=== PATIENT | female | born 1980 | race Caucasian/White ===

== ENCOUNTER 2017-05-21 20:17 | Inpatient (IN) ==
[2017-05-21] MEDS ORDERED: ALUM/MAG/SIMETH/LIDO VISC 1:1 30 ML BOTTLE PO STA (21:35)
[2017-05-21] MEDS ORDERED: NITROGLYCERIN 2% OINT 1 INCH/GM PACK TOP STA (21:35)
[2017-05-21] MEDS ORDERED: SODIUM CHLORIDE 0.9% 500 ML IV STA (21:35)
[2017-05-21] MEDS ORDERED: ASPIRIN 325 MG TABLET PO STA (21:35)
[2017-05-21] MEDS ORDERED: MORPHINE 2 MG/1 ML SYRINGE IV STA (21:35)
[2017-05-21] MEDS ORDERED: LORazepam 1 MG TABLET PO STA (21:35)
[2017-05-21] MEDS ORDERED: PROMETHAZINE 25 MG/1 ML VIAL IM STA (21:35)
[2017-05-21] MEDS ORDERED: NITROGLYCERIN 2% OINT 1 INCH/GM PACK TOP ONE (22:22)
[2017-05-21] MEDS ORDERED: MORPHINE 2 MG/1 ML SYRINGE ONE (22:22)
[2017-05-21] MEDS ORDERED: PROMETHAZINE 25 MG/1 ML VIAL ONE (22:22)
[2017-05-21] MEDS ORDERED: LORazepam 1 MG TABLET ONE (22:22)
[2017-05-21] MEDS ORDERED: ALUM/MAG/SIMETH/LIDO VISC 1:1 30 ML BOTTLE PO ONE (22:23)
[2017-05-21] MEDS ORDERED: ASPIRIN 325 MG TABLET ONE (22:23)
[2017-05-21 22:30] LABS: Apearance,Urine CLOUDY (Clear); Bacteria,Urine Moderate /HPF (Few); Bilirubin,Urine Negative (Negative); Blood, Urine Small mg/dL (Negative); Glucose,Urine (UA) Negative (Negative); Ketones,Urine Negative (Negative); Mucus,Urine Occasional /LPF (Occasional); Nitrite,Urine Negative (Negative); Protein,Urine Negative; RBC,Urine 1 /HPF (0-4); Squamous Epithelial Cell,Urine Occasional /HPF (0-10); Urine Color Yellow (Yellow); Urine Specific Gravity 1.013 (1.001-1.035); Urine Urobilinogen < 2.0 EU/DL (0.2-1.0); WBC,Urine 5 /HPF (0-6)
[2017-05-21 22:45] LABS: Basophils # 0.1 10*3/uL (0.0-0.2); Basophils % 0.4 % (0.0-0.8); Eosinophils # 0.1 10*3/uL (0.0-0.87); Eosinophils % 0.7 % (0.00-10.9); Hematocrit 45.1 VOL% (35.7-47.0); Hemoglobin 15.2 GM/DL (12.0-16.0); Immature Granulocytes % 0.5 %; Immature Granulocytes Absolute 0.06 #; Lymphocytes # 3.2 10*3/uL (1.4-4.0); Lymphocytes % 25.7 % (21.3-54.2); Mean Corpuscular HGB Conc 33.7 GM/DL (32-36); Mean Corpuscular Hemoglobin 30 PG (27-34); Mean Corpuscular Volume 89.3 FL (87-102); Mean Platelet Volume 9.5 FL (9.6-12.0); Monocytes # 0.7 10*3/uL (0.11-0.8); Monocytes % 5.9 % (1.7-12.7); Neutrophils # 8.3 10*3/uL (1.4-7.4); Neutrophils % 66.8 % (38.7-73.9); Platelet Count 353 T/CUMM (130-400); Red Blood Count 5.05 MC/CUMM (3.8-5.5); Red Cell Distribution Width 12.8 % (9.3-17.3); White Blood Count 12.5 T/CUMM (4-12)
[2017-05-21 22:53] LABS: Barbiturates Screen,Urine Negative (Negative); Benzodiazepines Screen,Urine Positive (Negative); Cannabinoid Screen,Urine Negative (Negative); Opiate Screen,Urine Positive (Negative); Phencyclidine Screen,Urine Negative (Negative)
[2017-05-21 23:05] LABS: Albumin 4.4 G/DL (3.4-5.0); Bilirubin,Total 0.4 MG/DL (0.2-1.0); Calcium 10.6 MG/DL (8.5-10.1); Potassium 4.2 MMOL/L (3.5-5.1); Total Protein 7.6 G/DL (6.4-8.3)
--- NOTE | 2017-05-21 23:23 | Emergency Department Note ---
Jenni Gottlieb Brittany, am scribing for, and in the presence of, Hesham Lopez MD 22:12. Jessica Gottlieb Charles R, MD, personally performed the services described in this documentation, ascribed by Janna Arteaga in my presence, and it is both accurate and complete 323 . Arrival - Arrival Chief Complaint: Chest Pain Stated Complaint: chest pain/hurting on right side/back and chest/ ED Nursing Triage Note: Patient complains of midsternal chest pain and right sided chest pain under breast. States that she has also been having nausea nad vomiting. No active vomiting noted upon triage. Patient states that she has a history of mitral valve prolapse, HTN and anxiety. Mode of Arrival: Ambulatory Limitations: No Limitations Source: Patient Time Seen by Provider: 05/21/17 21:13 - History of Present Illness HPI Narrative: This is a 36 y/o white female,who presents to the ED with c/o CP which started 3 days ago. She localizes the chest pian to the right lower quadrant of the chest, upon the exam the pain is actually in the RUQ of the abdomen and epipgastric area of the abdomen. She reports the chest pain moves into her back. She notes nausea and vomiting with the chest pain. She states at times the chest pain causes her to be SOB. Pt reports having an appendectomy but has not had a cholecystectomy. Pt has no other complaints/pain in the ED at this time. Pt has a PMHx of anxiety, HTN, and mitral valve prolapse. Pt has had an appendectomy. Pt has a family medical Hx of Heart disease. Pt denies a social Hx. Onset (ago): day(s) (Staretd 3 days ago) Consistency: constant Severity: moderate Date of Last Menstrual Period: hysterectomy Allergies/Adverse Reactions: Allergies Allergy/AdvReac Type Severity Reaction Status Date / Time metoclopramide [From Reglan] Allergy Hallucinati Verified 05/21/17 20:24 ng ondansetron Allergy HIVES Verified 05/21/17 20:25 [From Zofran (as hydrochloride)] Penicillins Allergy RASH Verified 05/21/17 20:24 Shellfish Allergy ANAPHYLAXIS Verified 05/21/17 20:24 Home Medications: Home Medications Medication Instructions Recorded Confirmed Type ALPRAZolam [Xanax] 1 mg PO TID 05/21/17 05/21/17 History cloNIDine TAB [Catapres Tab] 0.2 mg PO TID 05/21/17 05/21/17 History Review of System - Review of System 12 point system: reviewed and no additional remarkable complaints except as stated - Review of System Cardiovascular: Present: chest pain, other (Dyspnea). Absent: dyspnea on exertion Gastrointestinal: Present: nausea, vomiting Medical,Surgical,& Family Hx - Medical History Cardio: History of: Hypertension, Cardiovascular Problems (mitral valve prolapse ) Psychological: History of: Anxiety Disorders - Surgical History Abdominal Surgeries: Surgical HX of: Appendectomy Patient denies: Cholecystectomy - Family History Family History: Reports;: Family Heart Disease - Social History Smoking Status: Current some day smoker Frequency of Alcohol Use: None Type of Drug Use: None Exam Vital Signs: Vital Signs Temperature 97.4 F L 05/21/17 20:26 Pulse Rate 97 H 05/21/17 20:26 Respiratory Rate 18 05/21/17 20:26 Blood Pressure 107/88 05/21/17 20:26 O2 Sat by Pulse Oximetry 98 05/21/17 20:26 - General General appearance: alert, in no apparent distress - Head Head exam: Present: atraumatic, normocephalic, normal inspection - Eye Eye exam: Present: normal appearance, PERRL, EOMI. Absent: nystagmus, miosis, mydriasis - ENT ENT exam: Present: normal exam, normal oropharynx, mucous membranes moist, TM's normal bilaterally, normal external ear exam - Neck Neck exam: Present: normal inspection, full ROM, trachea midline. Absent: tenderness, meningismus, lymphadenopathy, thyromegaly - Chest Chest inspection: Present: symmetric chest wall rise, tenderness (Sternal tenderness). Absent: rash, abscess - Respiratory Respiratory exam: Present: normal lung sounds bilaterally. Absent: rales, respiratory distress, rhonchi, stridor, wheezes - Cardiovascular Cardiovascular exam: Present: regular rate, normal rhythm, normal heart sounds. Absent: murmur, rubs, gallop, clicks - Abdominal Exam Abdominal exam: Present: soft, tenderness (RUQ tendneress as well as epigastric tendneress), normal bowel sounds. Absent: distention, guarding, rebound, rigidity - Rectal Exam Rectal exam: Present: deferred - Extremities Exam Extremities exam: Present: normal inspection, full ROM, normal capillary refill. Absent: tenderness, pedal edema, joint swelling, calf tenderness - Back Exam Back exam: Present: normal inspection, full ROM. Absent: tenderness, muscle spasm, rashes - Neurological Exam Neurological exam: Present: alert, oriented X3, CN II-XII intact, reflexes normal. Absent: motor sensory deficit - Psychiatric Psychiatric exam: Present: normal affect, normal mood. Absent: depressed, agitated, anxious, flat affect, manic - Skin Skin exam: Present: warm, dry, intact, normal color. Absent: rash, cyanosis, diaphoresis, erythema, pallor, mottled Course - Consultations Consultation #1: Hospitalist will admit patient. Patient is a HIDA scan in the morning she still has right upper quadrant pain Time: 23:56 Results - Labs CBC & BMP: 05/21/17 22:26 05/21/17 22:26 Lab Results: I have reviewed the patients labs Labs: Laboratory Tests 05/21/17 22:26 WBC 12.5 H RBC 5.05 Hgb 15.2 Hct 45.1 MCV 89.3 MCH 30 MCHC 33.7 RDW 12.8 Plt Count 353 MPV 9.5 L Neut % (Auto) 66.8 Lymph % (Auto) 25.7 [place] % (Auto) 5.9 Eos % (Auto) 0.7 Baso % (Auto) 0.4 Neut # (Auto) 8.3 H Lymph # (Auto) 3.2 [place] # (Auto) 0.7 Eos # (Auto) 0.1 Baso # (Auto) 0.1 Immature Gran % 0.5 Nucleated RBC % 0.0 Immature Gran # 0.06 Nucleated RBCs # 0.00 Disposition Clinical Impression: Atypical chest pain, Biliary colic, Right upper quadrant abdominal pain Case discussed with: patient, patient's family Disposition: Still a Patient Condition: Stable Time of Disposition: 23:58
[2017-05-21] MEDS ORDERED: HYDROmorphone 2 MG/1 ML VIAL ONE (23:53)
[2017-05-21] MEDS ORDERED: HYDROmorphone 2 MG/1 ML VIAL IV STA (23:54)
[2017-05-22] MEDS ORDERED: ACETAMINOPHEN 325 MG TABLET PO PRN (00:52)
[2017-05-22] MEDS ORDERED: MORPHINE 2 MG/1 ML SYRINGE IV PRN (00:52)
--- NOTE | 2017-05-22 01:06 | Hospitalist History & Physical ---
Assessment and Plan - Time spent with patient Time spent with patient: Greater than 30 minutes Time spent discussing smoking cessation with patient: 3 to 10 minutes (1) Right upper quadrant abdominal pain Status: Acute Assessment and plan: Admit to the hospitalist service as observation from the ED. preliminary report of the gallbladder ultrasound is negative will obtain HIDA scan in a.m. depending on results consult surgery. Hydrate with normal saline at 125 mL's hour. Pain control Current Visit: Yes (2) Tobacco dependence Status: Acute Assessment and plan: Smoking cessation provided. Patient offered nicotine patch patient refused. Discussed importance of smoking cessation, patient expresses understanding. Current Visit: Yes (3) Hyperlipemia Status: Acute Assessment and plan: Patient reports she discontinued use of her medication due to muscle cramps and fatigue. Encourage patient to take co-Q 10 and restart the medication if this does not help follow-up with her PCP for possible change in medication. Current Visit: Yes (4) Anxiety Status: Acute Assessment and plan: Resume home medications as ordered. Current Visit: Yes History of Present Illness Chief complaint: Right upper quadrant pain History of present illness: Ms. Pitt is a 36 year old female with a past medical history of hypertension, everyday smoker, hyperlipidemia, and anxiety presents to the ED tonight with chief complaint of right upper quadrant pain radiating into her back. She indicates the pain started approximately 3 weeks ago but has progressively gotten worse. She denies diarrhea but does report nausea and vomiting. She reports that when she eats the pain gets worse if she eats foods such as [place]ic fries the pain gets even more intense. She does report her father and grandfather both had gallstones requiring a cholecystectomy. Initial workup in ED included a WBC of 12.5, d-dimer less than 0.5, a benign chemistry with the exception of calcium 10.6, UA with small amount of blood and moderate bacteria. A gallbladder ultrasound was performed ED with a pulmonary report of negative for gallstones. Abdominal x-ray series is pending. She will be admitted to the MedSurg unit overnight for further evaluation. Home Medications Medication Instructions Recorded Confirmed Type ALPRAZolam [Xanax] 1 mg PO TID 05/21/17 05/21/17 History cloNIDine TAB [Catapres Tab] 0.2 mg PO TID 05/21/17 05/21/17 History Allergies Allergy/AdvReac Type Severity Reaction Status Date / Time metoclopramide [From Reglan] Allergy Hallucinati Verified 05/21/17 20:24 ng ondansetron Allergy HIVES Verified 05/21/17 20:25 [From Zofran (as hydrochloride)] Penicillins Allergy RASH Verified 05/21/17 20:24 Shellfish Allergy ANAPHYLAXIS Verified 05/21/17 20:24 Medical,Surgical,& Family Hx - Medical History Cardio: History of: Hypertension, Cardiovascular Problems (mitral valve prolapse ) Psychological: History of: Anxiety Disorders - Surgical History Abdominal Surgeries: Surgical HX of: Appendectomy Patient denies: Cholecystectomy - Family History Family History: Reports;: Family Heart Disease - Social History Smoking Status: Current some day smoker Frequency of Alcohol Use: None Type of Drug Use: None Marital Status: Functional capacity: independent ambulation - Constitutional Constitutional: Absent: fever(s), night sweats, weakness, weight loss - Gastrointestinal Gastrointestinal: Present: abdominal pain, nausea, vomiting Exam - Constitutional Vitals: Period Temp Pulse Resp BP Sys/Cooley Pulse Ox Last 24 Hr 97.4 F-97.4 F 97-97 18-18 107-107/88-88 98 General appearance: normal weight, no acute distress - Head Head exam: Present: normal inspection - Eye Pupils: Present: CARRI - ENT ENT exam: Present: normal exam - Neck Neck exam: Present: normal inspection - Respiratory Respiratory exam: Present: clear to auscultation bilaterally - Cardiovascular Cardiovascular exam: Present: regular rate and rhythm - GI/Abdominal GI/Abdominal exam: Present: normal bowel sounds, Ibarra's sign, tenderness - Extremities Exam Extremities exam: Present: normal inspection - Back Exam Back exam: Present: normal inspection - Neurological Exam Neurological exam: Present: alert, oriented X3, normal gait - Psychiatric Psychiatric exam: Present: normal affect, normal mood - Skin Skin exam: Present: normal color, warm Results - Labs CBC & BMP: 05/21/17 22:26 05/21/17 22:26 Lab Results: I have reviewed the past 24 hour labs - Diagnostic Findings Procedure: Abdominal x-ray: pending, Chest x-ray: pending, Ultrasound: pending Quality Measures - VTE Contraindication to Pharmacological VTE Prophylaxis: Clinical assessment deems Pt at low risk, no prophalaxis needed
[2017-05-22] MEDS: SODIUM CHLORIDE 0.9% 1,000 ML IV SCH ×3 (01:37→21:24)
[2017-05-22] MEDS: PROMETHAZINE 25 MG/1 ML VIAL IM PRN ×3 (04:00→21:15)
--- NOTE | 2017-05-22 04:23 | EKG Report ---
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
--- NOTE | 2017-05-22 07:38 | Ultrasound Report ---
Gallbladder ultrasound. Indication: Right upper quadrant pain. No prior studies. The liver is normal in size. There is prominent fatty infiltration of the liver. The gallbladder is contracted. However the patient was not n.p.o. No gallstones are seen. There is no fluid around the gallbladder tenderness over the gallbladder, or gallbladder wall thickening. The common duct measures 4 mm. The right kidney has a normal appearance. No free fluid is seen in the upper abdomen. The tail of the pancreas is obscured by bowel gas. Visualized portions appear normal. Impression: Fatty infiltration of the liver. Contracted gallbladder, the patient was not n.p.o. which could account for this. PROCEDURE INTERPRETED AT [facility] DEPARTMENT OF RADIOLOGY Final Report Signed by: Dr. Gabriela Cm
--- NOTE | 2017-05-22 08:04 | XRay Report ---
2 view chest. Indication: Chest pain. The heart and mediastinal contours are unremarkable. The pulmonary vasculature is normal. There is no consolidation, pneumothorax, or pleural effusion. The osseous structures are unremarkable. Impression: No abnormality is seen. PROCEDURE INTERPRETED AT [facility] DEPARTMENT OF RADIOLOGY Final Report Signed by: Dr. Gabriela Cm
--- NOTE | 2017-05-22 08:09 | XRay Report ---
2 view abdomen. Indication: Right upper quadrant abdominal pain. The heart is normal in size. The lung bases are clear. No free air identified. No intra-abdominal organomegaly. There is considerable fecal material within the colon. There are a few scattered air-fluid levels predominantly in small intestine. No abnormal calcifications. Normal osseous structures. Impression: Constipation. Scattered small intestinal air-fluid levels, ileus versus enteritis. PROCEDURE INTERPRETED AT [facility] DEPARTMENT OF RADIOLOGY Final Report Signed by: Dr. Gabriela Cm
--- NOTE | 2017-05-22 10:33 | General Surgery Consult Note ---
Assessment and Plan (1) Abdominal pain Status: Acute Assessment and plan: This patient has abdominal pain in the right upper quadrant. Her gallbladder ultrasound was negative and her LFTs are normal. HIDA scan has been ordered. I will follow-up on the results of this. No surgical intervention is planned based on the current information we have available. Current Visit: Yes History of Present Illness Chief complaint: Abdominal pain with nausea History of present illness: Ms. Pitt is a 36 year old female who reports a 2 week history of worsening right upper quadrant pain that became unbearable yesterday and she presented to the ER. It is associated with nausea and vomiting. The patient states that it is worse after eating. Her workup in the ER included normal LFTs with a mild leukocytosis of 12,500 and an ultrasound was essentially normal. Home Medications Medication Instructions Recorded Confirmed Type ALPRAZolam [Xanax] 1 mg PO TID 05/21/17 05/22/17 History cloNIDine TAB [Catapres Tab] 0.2 mg PO BID 05/21/17 05/22/17 History Allergies Allergy/AdvReac Type Severity Reaction Status Date / Time metoclopramide [From Reglan] Allergy Hallucinati Verified 05/21/17 20:24 ng ondansetron Allergy HIVES Verified 05/21/17 20:25 [From Zofran (as hydrochloride)] Penicillins Allergy RASH Verified 05/21/17 20:24 Shellfish Allergy ANAPHYLAXIS Verified 05/21/17 20:24 Medical,Surgical,& Family Hx - Medical History Cardio: History of: Hypertension, Cardiovascular Problems (mitral valve prolapse ) Psychological: History of: Anxiety Disorders Endocrine: History of: Thyroid Disorder (HYPERTHYROID) Respiratory: History of: Asthma (CHILDHOOD), Bronchitis, Pneumonia (WITH SCARRING) Renal: History of: Renal Problems (CYST RIGHT KIDNEY) Genitourinary: History of: Kidney Stones Gastrointestinal: History of: GERD, GI Problems (ULCER) Musculoskeletal: History of: Musculoskeletal Problems (LEFT HAND AND LEFT ANKLE FX) - Surgical History HEENT Surgeries: Surgical HX of: Tonsilectomy & Adenoidectomy Abdominal Surgeries: Surgical HX of: Appendectomy Patient denies: Cholecystectomy - Family History Family History: Reports;: Family Heart Disease - Social History Smoking Status: Current some day smoker Frequency of Alcohol Use: None Type of Drug Use: None - Constitutional Constitutional: Present: as per HPI - EENT Nose, mouth and throat: Present: as per HPI - Cardiovascular Cardiovascular: Present: as per HPI - Respiratory Respiratory: Present: as per HPI - Gastrointestinal Gastrointestinal: Present: as per HPI - Genitourinary Genitourinary: Present: as per HPI - Musculoskeletal Musculoskeletal: Present: as per HPI - Neurological Neurological: Present: as per HPI - Endocrine Endocrine: Present: as per HPI Hematologic/Lymphatic: Present: as per HPI Exam - Constitutional Vitals: Period Temp Pulse Resp BP Sys/Cooley Pulse Ox Last 24 Hr 97.4 F-97.6 F 73-97 16-18 107-126/58-89 93-100 General appearance: no acute distress, over weight - Head Head exam: Present: normal inspection, normocephalic - Eye Eye exam: Present: EOMI. Absent: scleral icterus Pupils: Present: CARRI - ENT ENT exam: Present: normal exam Mouth exam: Present: normal external inspection, normal voice - Neck Neck exam: Present: normal inspection, trachea midline - Respiratory Respiratory exam: Present: clear to auscultation bilaterally. Absent: accessory muscle use, chest wall tenderness - Cardiovascular Cardiovascular exam: Present: RRR. Absent: systolic murmur, tachycardia - GI/Abdominal GI/Abdominal exam: Present: normal bowel sounds, tenderness (The patient is focally tender in the right upper quadrant), soft. Absent: guarding, rebound - Extremities Exam Extremities exam: Present: normal inspection, normal capillary refill - Back Exam Back exam: Present: normal inspection - Neurological Exam Neurological exam: Present: alert, oriented X3 Speech: Present: normal - Skin Skin exam: Present: normal color, warm Quality Measures - VTE Contraindication to Pharmacological VTE Prophylaxis: Clinical assessment deems Pt at low risk, no prophalaxis needed Results - Labs CBC & BMP: 05/21/17 22:26 05/21/17 22:26 - Diagnostic Findings Procedure: Ultrasound: image reviewed by me, report reviewed by me (Contracted gallbladder with no biliary dilation. No gallstones seen)
--- NOTE | 2017-05-22 10:57 | Hospitalist Progress Note ---
Assessment and Plan (1) Right upper quadrant abdominal pain Status: Acute Assessment and plan: hida scan, npo for now Current Visit: Yes (2) Tobacco dependence Status: Acute Assessment and plan: nicotine patch Current Visit: Yes (3) Hyperlipemia Status: Acute Assessment and plan: lipid profile in am Current Visit: Yes Hospitalist: Subjective Interval history: she is have alot of RUQ pain radiating to her right shoulder. Exam - Constitutional Vitals: Period Temp Pulse Resp BP Sys/Cooley Pulse Ox Last 24 Hr 97.4 F-97.6 F 73-97 16-18 107-126/58-89 93-100 Exam: Heart Rate-[RRR] Lungs-[CTAB] GI-[+bs tender in ruq Ext-[no edema] Neuro [Motor 5/5], [alert and oriented times 3] psych [normal mood and affect] General [ acute distress due to pain. Boyfriend in bed with her ] Results - Labs CBC & BMP: 05/21/17 22:26 05/21/17 22:26 Lab Results: I have reviewed the past 24 hour labs - Diagnostic Findings Procedure: Chest x-ray: report reviewed by me (NAD), KUB x-ray: report reviewed by me (constipation with scattered airfluid levels ), Ultrasound: report reviewed by me (fatty infiltration of the liver ) Quality Measures - VTE Contraindication to Pharmacological VTE Prophylaxis: Clinical assessment deems Pt at low risk, no prophalaxis needed
[2017-05-22] MEDS: metroNIDAZOLE INJ 500 MG in PREMIX 1 EACH IV SCH ×3 (11:49→21:56)
[2017-05-22] MEDS: CIPROFLOXACIN INJ 400 MG in PREMIX 1 EACH IV SCH ×2 (11:49→23:06)
[2017-05-22] MEDS: NICOTINE 21 MG/24 HR PATCH TRANSDERM SCH (12:54)
--- NOTE | 2017-05-22 13:16 | Nuclear Medicine Report ---
Nuclear medicine hepatobiliary scan. Indication: Right upper quadrant pain. Following the intravenous administration of 5 mCi technetium 99 M Choletec, hepatic excretion is prompt and uniform. Gallbladder activity can be seen by 15 minutes. Bowel activity can be seen by 30 minutes. The patient was administered 8 ounces of Ensure orally. The patient did complain of nausea and cramping. The calculated ejection fraction is 87%. Normal is 35% or greater. Impression: The findings are normal, but the patient did experience pain and cramping with oral challenge. PROCEDURE INTERPRETED AT [facility] DEPARTMENT OF RADIOLOGY Final Report Signed by: Dr. Gabriela Cm
[2017-05-22] MEDS: ALPRAZolam 0.5 MG TABLET PO PRN (13:20)
--- NOTE | 2017-05-22 15:14 | Gastrointestinal Consult Note ---
Assessment and Plan - Time spent with patient Time spent with patient: Greater than 30 minutes (1) Right upper quadrant abdominal pain Status: Acute Current Visit: Yes (2) Other specified counseling Status: Acute Current Visit: Yes History of Present Illness History of present illness: Ms. Pitt is a 36 year old female Home Medications Medication Instructions Recorded Confirmed Type ALPRAZolam [Xanax] 1 mg PO TID 05/21/17 05/22/17 History cloNIDine TAB [Catapres Tab] 0.2 mg PO BID 05/21/17 05/22/17 History Allergies Allergy/AdvReac Type Severity Reaction Status Date / Time metoclopramide [From Reglan] Allergy Hallucinati Verified 05/21/17 20:24 ng ondansetron Allergy HIVES Verified 05/21/17 20:25 [From Zofran (as hydrochloride)] Penicillins Allergy RASH Verified 05/21/17 20:24 Shellfish Allergy ANAPHYLAXIS Verified 05/21/17 20:24 Medical,Surgical,& Family Hx - Medical History Cardio: History of: Hypertension, Cardiovascular Problems (mitral valve prolapse ) Psychological: History of: Anxiety Disorders Endocrine: History of: Thyroid Disorder (HYPERTHYROID) Respiratory: History of: Asthma (CHILDHOOD), Bronchitis, Pneumonia (WITH SCARRING) Renal: History of: Renal Problems (CYST RIGHT KIDNEY) Genitourinary: History of: Kidney Stones Gastrointestinal: History of: GERD, GI Problems (ULCER) Musculoskeletal: History of: Musculoskeletal Problems (LEFT HAND AND LEFT ANKLE FX) - Surgical History HEENT Surgeries: Surgical HX of: Tonsilectomy & Adenoidectomy Abdominal Surgeries: Surgical HX of: Appendectomy Patient denies: Cholecystectomy - Family History Family History: Reports;: Family Heart Disease - Social History Smoking Status: Current some day smoker Frequency of Alcohol Use: None Type of Drug Use: None Exam - Constitutional Vitals: Period Temp Pulse Resp BP Sys/Cooley Pulse Ox Last 24 Hr 97.4 F-97.6 F 73-97 16-18 107-126/58-89 93-100 Results - Labs CBC & BMP: 05/21/17 22:26 05/21/17 22:26 Quality Measures - VTE Contraindication to Pharmacological VTE Prophylaxis: Clinical assessment deems Pt at low risk, no prophalaxis needed Note Addendum: PLEASE NOTE -- automatic citation of patient information is unavoidable in this electronic note. I have made a reasonable effort to review the information cited , but it is not a part of my evaluation, impression, or recommendation unless specifically discussed in the dictated text that follows. As well, voice recognition software was used in the creation of this clinical note. Reasonable effort was made to identify and correct gross errors. Despite proofreading, errors in six pack packer may be present, including nonsense verbiage at times. If you encounter such an error, please contact me at for discussion and correction. -- Blake Chief complaint: right upper quadrant abdominal pain History of present illness: This is a new patient, a 36-year-old female seen by consultation for evaluation of abdominal pain. The patient is admitted to the hospitalist service under the care of Dr. Briceño with a primary diagnosis of same. The patient was admitted yesterday through the emergency department with primary complaint of abdominal pain radiating to her back over the past 2-3 weeks, progressively worse over the past week. Evaluation at that time revealed mild leukocytosis without radiologic evidence of pancreatic or biliary disease. The patient was seen by general surgery and underwent HIDA scan with normal findings objectively but with subjective report of pain with oral challenge. At present, the patient reports continued abdominal pain, waxing and waning and continued nausea. Patient denies fever, chills, night sweats, rigors, headache, dizziness, neck pain, visual changes, redness of the eyes, dysphagia, odynophagia, difficulty chewing, chest pain, shortness of breath, weight loss, regurgitation, hematemesis, hematochezia, melena, proctalgia, constipation, dysuria, skin changes, temperature regulation issues, flushing, easy bleeding/bruising, musculoskeletal pain, mental status change, numbness/weakness in the extremities , yellowing of the eyes/skin, cutaneous eruptions, and other complaints in general. Review of systems: 12 point review of systems was negative except as documented above. Outpatient medications: Xanax, clonidine Inpatient medications: Tylenol, Xanax, ciprofloxacin, clonidine, Dilaudid, Flagyl, Nicoderm patch, Phenergen, normal saline infusion Past Medical History: hypertension, mitral valve prolapse, anxiety disorder Social history: positive tobacco. Negative alcohol Family history: no gastrointestinal cancers Physical examination: Vital Signs: Current vital signs reviewed and documented above. General Appearance: lying in bed. Comfortable. No acute distress. Head: Normocephalic. Neck: Palpation of the neck revealed no abnormalities. Eyes: No scleral icterus. No scleral injection. No conjunctival pallor. Oral Cavity: Odor of breath was normal. No drooling was observed. Lips showed no abnormalities. Floor of the mouth showed no abnormalities. Pharynx: Oropharynx was normal. Lungs: Respiration rhythm and depth was normal. Cardiovascular: Heart rate and rhythm were normal. Abdomen: abdomen was not distended. Abdominal palpation revealed mild tenderness and no hepatosplenomegaly. Ascites was not discovered. Abdominal auscultation revealed positive bowel sounds. Musculoskeletal System: Musculoskeletal system was grossly normal. Neurological: level of consciousness was normal. Speech was normal. Skin: General appearance was normal. Color and pigmentation were normal. No skin lesions. Laboratory: white blood count 12.5, hemoglobin 15.2, hematocrit 45.1, platelets 343, ALT 42, AST 17, alkaline phosphatase 66, albumin 4.4, total protein 7.6, total bilirubin 0.4, urine opiate positive, urine benzo positive Radiology: gallbladder ultrasound, May 21, 2017: fatty infiltration of the liver; contracted gallbladder without stones; normal caliber common bile duct without stones -- HIDA scan, May 22, 2017: normal images; subjective pain with oral challenge Impressions: 1. Abdominal pain -- the differential diagnosis includes peptic ulcer, pancreatic or biliary disease, functional abdominal pain, and others. I recommend high-dose proton pump inhibitor therapy, clear liquids only diet, volume and electrolyte management, and observation. We will plan upper endoscopy tomorrow for further evaluation and will follow up with further recommendations pending the result of that exam. The patient has already seen Dr. Buckner of the general surgery service and I believe he will follow up regarding the possibility of gallbladder disease. 2. Other specified counseling -- The patient was seen for greater than 30 minutes. The patient was counseled for greater than 50% of this time regarding differential diagnosis, likely diagnosis, diagnostic and therapeutic alternatives, risks/benefits/alternatives of medications and procedures, and plan of care generally. The patient expressed understanding and wishes to proceed. Recommendations: -- high-dose proton pump inhibitor therapy -- volume and electrolyte management -- clear liquid diet -- upper endoscopy Tuesday -- follow-up with Dr. Buckner -- thank you for consultation. Dr. Parada will assume G.I. care for this patient tomorrow
[2017-05-22] MEDS: HYDROmorphone 2 MG/1 ML VIAL IV PRN (21:17)
[2017-05-22] MEDS ORDERED: HYDROCORTISONE 1% OINT 28.35 GM TUBE TOP PRN (22:51)
[2017-05-23] MEDS: HYDROmorphone 2 MG/1 ML VIAL IV PRN ×6 (01:20→21:39)
[2017-05-23] MEDS: metroNIDAZOLE INJ 500 MG in PREMIX 1 EACH IV SCH ×4 (03:37→21:43)
[2017-05-23] MEDS: PROMETHAZINE 25 MG/1 ML VIAL IM PRN ×3 (05:20→21:35)
[2017-05-23 05:52] LABS: Basophils % 0.4 % (0.0-0.8); Eosinophils # 0.2 10*3/uL (0.0-0.87); Eosinophils % 2.2 % (0.00-10.9); Hematocrit 40.6 VOL% (35.7-47.0); Hemoglobin 13.1 GM/DL (12.0-16.0); Immature Granulocytes % 0.2 %; Immature Granulocytes Absolute 0.02 #; Lymphocytes # 3.8 10*3/uL (1.4-4.0); Lymphocytes % 45.2 % (21.3-54.2); Mean Corpuscular HGB Conc 32.3 GM/DL (32-36); Mean Corpuscular Hemoglobin 29 PG (27-34); Mean Corpuscular Volume 91.2 FL (87-102); Mean Platelet Volume 9.8 FL (9.6-12.0); Monocytes # 0.6 10*3/uL (0.11-0.8); Monocytes % 6.6 % (1.7-12.7); Neutrophils # 3.8 10*3/uL (1.4-7.4); Neutrophils % 45.4 % (38.7-73.9); Platelet Count 302 T/CUMM (130-400); Red Blood Count 4.45 MC/CUMM (3.8-5.5); Red Cell Distribution Width 12.7 % (9.3-17.3); White Blood Count 8.5 T/CUMM (4-12)
[2017-05-23 06:13] LABS: Albumin 3.3 G/DL (3.4-5.0); Bilirubin,Total 0.8 MG/DL (0.2-1.0); Calcium 8.4 MG/DL (8.5-10.1); Total Protein 5.9 G/DL (6.4-8.3)
[2017-05-23 06:14] LABS: Potassium 3.6 MMOL/L (3.5-5.1)
[2017-05-23 06:16] LABS: Risk Ratio 3.38
[2017-05-23] MEDS: CIPROFLOXACIN INJ 400 MG in PREMIX 1 EACH IV SCH ×2 (10:16→22:55)
[2017-05-23] MEDS: SODIUM CHLORIDE 0.9% 1,000 ML IV SCH ×3 (11:58→17:39)
[2017-05-23] MEDS ORDERED: LIDOCAINE 2% 5 ML VIAL ONE (12:03)
[2017-05-23] MEDS ORDERED: PROPOFOL 200 MG/20 ML VIAL IV ONE (12:03)
--- NOTE | 2017-05-23 12:08 | History and Physical Update ---
History and Physical Update - Physical Exam Mental Status: alert and oriented Heart: regular rate and rhythm Lung: clear to auscultation Abdomen: within normal limits Vitals: within normal limits
--- NOTE | 2017-05-23 12:13 | Operative Note ---
Date of procedure: 05/23/17 Pre-op diagnosis: Right upper quadrant pain Procedure: EGD 36-year-old female with right upper quadrant pain with negative biliary workup now for upper endoscopy to further evaluate. Patient reports prior history of reflux and esophageal spasm but denies any dysphagia complaints. Informed consent was obtained the patient She was sedated with MAC anesthesia per anesthesia protocol. Patient placed left lateral decubitus position the Olympus flexible video upper endoscope is her lower cavity direct vision the esophagus intubated findings: Esophagus-normal proximal mid esophageal mucosa distal esophagus no significant hiatal hernia no stricture no Duckworth's no varices are seen. Stomach-normal insufflation there is a moderate amount of retained food remaining stomach is normal to direct retroflexed views of the body fundus cardia and antrum the stomach. Visibility is limited by retained food. Pylorus-normal Duodenum-normal from the bulb duodenum to the third portion of duodenum. The procedure terminated patient discharge recovery in good condition. Postop diagnosis: 1. Retained food raising the possibility of gastroparesis otherwise unremarkable. Proceed with CT scan of abdomen and pelvis to evaluate her complaints of right upper quadrant abdominal pain with no explanation on previous studies. Anesthesia: MAC Surgeon / Physician: Earle Parada Estimated blood loss: none Specimens: none sent Condition: stable Disposition: post procedure unit Results - Labs CBC & BMP: 05/23/17 05:02 05/23/17 05:02 Discharge Plan - Discharge Medications No Action cloNIDine TAB [Catapres Tab] 0.2 mg PO BID ALPRAZolam [Xanax] 1 mg PO TID - Follow Up or Referral - Forms/Instructions
--- NOTE | 2017-05-23 12:18 | Anesthesia Post-Op ---
Anesthesia Post OP - Post Ansesthetic Evaluation Patient seen in post op: Yes Resp: within normal limits CV: within normal limits Mental: within normal limits Temp: within normal limits [id number]: within normal limits Nausea and Vomiting: within normal limits Pain: within normal limits
--- NOTE | 2017-05-23 14:17 | Hospitalist Progress Note ---
Assessment and Plan (1) Right upper quadrant abdominal pain Status: Acute Assessment and plan: Patient is being treated with empiric antibiotics but has been afebrile. WBC count is normal today. GI recommendations noted appreciate assistance I will order CT scan abdomen pelvis. Continue as needed antiemetics and analgesics. Current Visit: Yes (2) History of hypertension Status: Chronic Assessment and plan: Blood pressure is controlled Current Visit: Yes (3) Hyperlipemia Status: Acute Assessment and plan: History of left hyperlipidemia but recent lipid panel seem to grossly unremarkable except for very mild elevated triglyceride Current Visit: No (4) Tobacco dependence Status: Acute Current Visit: Yes Hospitalist: Subjective Interval history: Ms. Pitt is a 36 year old female with a past medical history of hypertension, smoking , hyperlipidemia, and anxiety. She is admitted with the abdominal pain. Patient reported worsening abdominal pain for 2 weeks. He stated her abdominal pain actually is started in October 2016 but with episodic but for the last 2 weeks has been worse required her to come to the hospital. Pain is right upper quadrant and worse with meals she is not able to tolerate food she had associated nausea vomiting. There was no associated fever or chills. Patient had WBC count of 12.5 from admission. She underwent evaluation with right upper quadrant ultrasound which was negative. She underwent HIDA scan it was also negative for acute cholecystitis. Today she underwent EGD and apart from retained food it was unremarkable. CT scan evaluation was recommended/plan by GI. Exam - Constitutional Vitals: Period Temp Pulse Resp BP Sys/Cooley Pulse Ox Last 24 Hr 97.1 F-98.5 F 76-95 16-20 110-128/60-79 97-99 General appearance: over weight - Respiratory Respiratory exam: Present: clear to auscultation bilaterally. Absent: rales, rhonchi - Cardiovascular Cardiovascular exam: Present: regular rate and rhythm, systolic murmur. Absent : tachycardia - GI/Abdominal GI/Abdominal exam: Present: normal bowel sounds, tenderness (Tenderness present in the right upper quadrant with some guarding no rigidity), soft. Absent: distended - Extremities Exam Extremities exam: Present: normal inspection. Absent: edema - Neurological Exam Neurological exam: Present: alert, oriented X3 Results - Labs CBC & BMP: 05/23/17 05:02 05/23/17 05:02 Lab Results: I have reviewed the past 24 hour labs Quality Measures - VTE Contraindication to Pharmacological VTE Prophylaxis: Clinical assessment deems Pt at low risk, no prophalaxis needed
[2017-05-23] MEDS: ALPRAZolam 0.5 MG TABLET PO PRN ×2 (17:24→22:12)
[2017-05-23] MEDS: NICOTINE 21 MG/24 HR PATCH TRANSDERM SCH (17:25)
--- NOTE | 2017-05-23 17:42 | CT Report ---
CT of the abdomen and pelvis without and with intravenous contrast. 100 cc Omni 350. No oral contrast was administered. Indication: Right upper quadrant pain. No prior studies. The heart is normal in size. The lung bases are clear. There is no pleural effusion or pericardial effusion. The liver is normal in size and density. No focal liver lesions are seen. There is no intrahepatic biliary ductal dilatation. There is no adrenal enlargement. There is no splenic enlargement. The pancreas presents a normal appearance. There are several subcentimeter periportal lymph nodes present. The kidneys are normal in size, location, and contour. The left kidney contains a 2.5 cm cyst at its mid pole, and multiple additional smaller cysts within the medulla. There is a tiny cortical cyst at the lower pole of the right kidney. Punctate nonobstructing calculi are seen bilaterally. The gastric contour is normal. The loops of small intestine are not dilated. The terminal ileum presents a normal appearance. The appendix is not seen. There are some surgical clips in this location. It may have been removed and clinical correlation is recommended. No inflammatory changes are noted in the right lower quadrant. The colon is not dilated. The colon is filled with a moderate amount of fecal material. The colon is mildly redundant. The uterus has been removed. The left ovary may still be present. There is no free air or free fluid. The urinary bladder presents a normal appearance. There is an umbilical hernia containing only fat. There is a lower ventral abdominal wall hernia containing only fat. There are bilateral inguinal hernias containing only fat. The osseous structures are unremarkable. Impression: 1. Multiple fat-containing hernias. 2. Subcentimeter lymph nodes in the periportal region. 3. Multiple renal cysts. 4. Punctate nonobstructing renal calculi. The CT exam was performed using one or more of the following dose reduction techniques: Automated exposure control, adjustment of the mA and/or kV according to patient size, or use of iterative reconstruction technique. PROCEDURE INTERPRETED AT [facility] DEPARTMENT OF RADIOLOGY Final Report Signed by: Dr. Gabriela Cm
--- NOTE | 2017-05-23 21:13 | General Surgery Progress Note ---
Assessment and Plan (1) Abdominal pain Status: Acute Assessment and plan: Patient had an endoscopy today that showed possible gastroparesis changes but fairly unrevealing. I am not convinced that her symptoms are related to her gallbladder but we will continue to follow her for now. Current Visit: Yes Subjective Patient reports: Present: no new complaints, still having pain, pain is less, afebrile Exam - Constitutional Vitals: Period Temp Pulse Resp BP Sys/Cooley Pulse Ox Last 24 Hr 97.1 F-98.0 F 76-90 16-20 110-128/64-79 96-99 General appearance: no acute distress, over weight - Head Head exam: Present: normal inspection, normocephalic - Eye Eye exam: Present: EOMI Pupils: Present: CARRI - ENT ENT exam: Present: normal exam Mouth exam: Present: normal external inspection, normal voice - Neck Neck exam: Present: normal inspection, trachea midline - Respiratory Respiratory exam: Present: clear to auscultation bilaterally. Absent: accessory muscle use, chest wall tenderness - Cardiovascular Cardiovascular exam: Present: RRR. Absent: systolic murmur, tachycardia - GI/Abdominal GI/Abdominal exam: Present: tenderness (Focally tender in the right upper quadrant and midepigastric), soft - Extremities Exam Extremities exam: Present: normal inspection, normal capillary refill - Back Exam Back exam: Present: normal inspection - Neurological Exam Neurological exam: Present: alert, oriented X3 Speech: Present: normal - Skin Skin exam: Present: normal color, warm Results - Labs CBC & BMP: 05/23/17 05:02 05/23/17 05:02 Quality Measures - VTE Contraindication to Pharmacological VTE Prophylaxis: Clinical assessment deems Pt at low risk, no prophalaxis needed
[2017-05-24] MEDS: HYDROmorphone 2 MG/1 ML VIAL IV PRN ×6 (01:23→21:41)
[2017-05-24] MEDS: SODIUM CHLORIDE 0.9% 1,000 ML IV SCH ×5 (01:26→23:57)
[2017-05-24] MEDS: metroNIDAZOLE INJ 500 MG in PREMIX 1 EACH IV SCH ×2 (03:29→09:32)
[2017-05-24] MEDS: PROMETHAZINE 25 MG/1 ML VIAL IM PRN ×3 (03:35→23:53)
[2017-05-24 06:53] LABS: Basophils # 0.1 10*3/uL (0.0-0.2); Basophils % 0.5 % (0.0-0.8); Eosinophils # 0.3 10*3/uL (0.0-0.87); Eosinophils % 2.7 % (0.00-10.9); Hematocrit 38.7 VOL% (35.7-47.0); Hemoglobin 12.9 GM/DL (12.0-16.0); Immature Granulocytes % 0.2 %; Immature Granulocytes Absolute 0.02 #; Lymphocytes # 4.3 10*3/uL (1.4-4.0); Lymphocytes % 44.4 % (21.3-54.2); Mean Corpuscular HGB Conc 33.3 GM/DL (32-36); Mean Corpuscular Hemoglobin 30 PG (27-34); Mean Corpuscular Volume 90.8 FL (87-102); Mean Platelet Volume 9.3 FL (9.6-12.0); Monocytes # 0.7 10*3/uL (0.11-0.8); Monocytes % 6.7 % (1.7-12.7); Neutrophils # 4.4 10*3/uL (1.4-7.4); Neutrophils % 45.5 % (38.7-73.9); Platelet Count 269 T/CUMM (130-400); Red Blood Count 4.26 MC/CUMM (3.8-5.5); Red Cell Distribution Width 12.6 % (9.3-17.3); White Blood Count 9.7 T/CUMM (4-12)
[2017-05-24 07:33] LABS: Alanine Aminotransferase 35 U/L (13-56); Albumin 3.3 G/DL (3.4-5.0); Alkaline Phosphatase 51 U/L (45-117); Aspartate Amino Transferase 20 U/L (0-37); Bilirubin,Total < 0.39 MG/DL (0.2-1.0); Blood Urea Nitrogen 6 MG/DL (7-18); Calcium 8.4 MG/DL (8.5-10.1); Glucose 95 MG/DL (74-106); Osmolality,Calculated 280.1 MOS/KG (273-304); Potassium 3.6 MMOL/L (3.5-5.1); Sodium 142 MMOL/L (136-145); Total Protein 6.1 G/DL (6.4-8.3)
[2017-05-24] MEDS ORDERED: diphenhydrAMINE 50 MG/1 ML VIAL IV ONE (07:54)
[2017-05-24] MEDS: NICOTINE 21 MG/24 HR PATCH TRANSDERM SCH (09:32)
[2017-05-24] MEDS: CIPROFLOXACIN INJ 400 MG in PREMIX 1 EACH IV SCH ×2 (09:47→21:34)
--- NOTE | 2017-05-24 10:24 | Gastrointestinal Progress Note ---
<JessicaMaureen Warren - Last Filed: 05/24/17 10:21> Assessment and Plan (1) Abdominal pain Status: Acute Assessment and plan: 05/24-continued complaints of right upper quadrant pain. No vomiting at present. CT findings noted below. Consider gastric emptying scan. Plan an addendum to follow by Dr. Parada. Current Visit: Yes Gastroenterology - PN: Subj Interval history: CC: Right upper quadrant pain Patient is seen, awake and alert lying in bed. She states that she continues to have the right upper quadrant pain radiating around to her back. She states that she is concerned due to no definitive findings at this time to explain her pain. CT of abdomen on yesterday with and without contrast showed multiple fat containing hernias, subcentimeter lymph node in the periportal region and multiple renal cyst. Patient states that she also continues to have nausea but has not had any vomiting at this time. She states she is still convinced this is her gallbladder due to the symptoms she has now is very similar to the symptoms she had in her last in which she had sludge in her gallbladder at that time. In review, her ultrasound of her gallbladder just showed fatty infiltration of the liver and a contracted gallbladder however patient was not n.p.o. for that study. HIDA scan showed an EF of 87%. Abdomen is soft, nontender. EGD findings on yesterday noted to show retained food however unremarkable scope. ROS: Denies shortness of breath or chest pain Exam (Progress Note) - Constitutional Vitals: Period Temp Pulse Resp BP Sys/Cooley Pulse Ox Last 24 Hr 97.1 F-98.2 F 76-96 16-20 104-138/64-90 94-99 General appearance: normal weight, no acute distress - Head Head exam: Present: normal inspection, normocephalic - Eye Eye exam: Present: other (Lids and conjunctive are unremarkable). Absent: scleral icterus - ENT ENT exam: Present: normal exam, normal oropharynx - Neck Neck exam: Present: normal inspection - Respiratory Respiratory exam: Present: clear to auscultation bilaterally. Absent: rales, rhonchi, wheezes - Cardiovascular Cardiovascular exam: Present: regular rate and rhythm. Absent: diastolic murmur , JVD, systolic murmur - GI/Abdominal GI/Abdominal exam: Present: normal bowel sounds, soft. Absent: ascites, distended, mass, organomegaly, tenderness - Extremities Exam Extremities exam: Present: normal inspection, full ROM - Back Exam Back exam: Present: normal inspection - Neurological Exam Neurological exam: Present: alert, oriented X3 - Psychiatric Psychiatric exam: Present: normal affect, normal mood - Skin Skin exam: Present: normal color, warm, dry Results - Labs CBC & BMP: 05/24/17 06:42 05/24/17 06:42 Lab Results: I have reviewed the past 24 hour labs <Earle Parada - Last Filed: 05/24/17 19:01> Exam (Progress Note) - Constitutional Vitals: Period Temp Pulse Resp BP Sys/Cooley Pulse Ox Last 24 Hr 97.1 F-98.2 F 76-96 16-20 104-138/64-90 94-97 Results - Labs CBC & BMP: 05/24/17 06:42 05/24/17 06:42
--- NOTE | 2017-05-24 13:02 | Hospitalist Progress Note ---
Assessment and Plan (1) Right upper quadrant abdominal pain Status: Acute Assessment and plan: Patient still is symptomatic not sure about the etiology yet. Gastric emptying studies planned by GI. Patient and her want the gallbladder out. It was explained to him by me and Dr. Parada at it is not significantly sure she will be any benefit from that. She is okay for now to wait for the gastric emptying study results. Will continue on current analgesic regimen with the antiemetic as needed. She has been on antibiotics but afebrile and normal white count now. I am not sure of the rash was part of drug reaction she has never taken Flagyl before I will just hold Flagyl and continue Cipro and give her Benadryl as needed. Current Visit: Yes (2) History of hypertension Status: Chronic Assessment and plan: Blood pressure is controlled Current Visit: Yes (3) Hyperlipemia Status: Acute Assessment and plan: History of left hyperlipidemia but recent lipid panel seem to grossly unremarkable except for very mild elevated triglyceride Current Visit: No (4) Tobacco dependence Status: Chronic Current Visit: Yes Hospitalist: Subjective Interval history: Ms. Pitt is a 36 year old female with a past medical history of hypertension, smoking , hyperlipidemia, and anxiety. She is admitted with the abdominal pain. Patient reported worsening abdominal pain for 2 weeks. He stated her abdominal pain actually is started in October 2016 but with episodic but for the last 2 weeks has been worse required her to come to the hospital. Pain is right upper quadrant and worse with meals she is not able to tolerate food she had associated nausea vomiting. There was no associated fever or chills. Patient had WBC count of 12.5 from admission. She underwent evaluation with right upper quadrant ultrasound which was negative. She underwent HIDA scan it was also negative for acute cholecystitis. On 05/23/2017 she underwent EGD and apart from retained food it was unremarkable. CT scan evaluation was done and it showed just multiple fat- containing hernias sub-centimeters lymph nodes and periportal area as the renal cyst and nonobstructing renal calculi. She continued to be symptomatic with nausea vomiting and right upper quadrant pain not able to tolerate food she says she has vomited multiple times. She also has developed a rash on left posterior thigh with itching she was given Benadryl and that has relieved her itching. Exam - Constitutional Vitals: Period Temp Pulse Resp BP Sys/Cooley Pulse Ox Last 24 Hr 97.3 F-98.2 F 76-96 16-20 104-138/64-90 94-97 General appearance: over weight no acute distress at present - Respiratory Respiratory exam: Present: clear to auscultation bilaterally. Absent: rales, rhonchi - Cardiovascular Cardiovascular exam: Present: regular rate and rhythm, systolic murmur. Absent : tachycardia - GI/Abdominal GI/Abdominal exam: Present: normal bowel sounds, tenderness (Tenderness present in the right upper quadrant with some guarding no rigidity), soft. Absent: distended - Extremities Exam Extremities exam: Present: normal inspection. Absent: edema Rash noted on posterior aspect of the left thigh with maculopapular papular small multiple areas. - Neurological Exam Neurological exam: Present: alert, oriented X3 Results - Labs CBC & BMP: 05/24/17 06:42 05/24/17 06:42 Quality Measures - VTE Contraindication to Pharmacological VTE Prophylaxis: Clinical assessment deems Pt at low risk, no prophalaxis needed
[2017-05-24] MEDS: cloNIDine 0.1 MG TABLET PO SCH ×2 (13:16→21:09)
[2017-05-24] MEDS: diphenhydrAMINE 50 MG/1 ML VIAL IV PRN ×2 (14:57→21:09)
[2017-05-24] MEDS: ALPRAZolam 0.5 MG TABLET PO PRN (21:38)
[2017-05-25] MEDS: HYDROmorphone 2 MG/1 ML VIAL IV PRN ×2 (01:30→05:36)
[2017-05-25] MEDS: diphenhydrAMINE 50 MG/1 ML VIAL IV PRN (05:40)
[2017-05-25 06:14] LABS: Basophils # 0.1 10*3/uL (0.0-0.2); Basophils % 0.5 % (0.0-0.8); Eosinophils # 0.2 10*3/uL (0.0-0.87); Hematocrit 42.3 VOL% (35.7-47.0); Hemoglobin 14.1 GM/DL (12.0-16.0); Immature Granulocytes % 0.4 %; Immature Granulocytes Absolute 0.05 #; Lymphocytes # 3.7 10*3/uL (1.4-4.0); Lymphocytes % 32.3 % (21.3-54.2); Mean Corpuscular HGB Conc 33.3 GM/DL (32-36); Mean Corpuscular Hemoglobin 30 PG (27-34); Mean Platelet Volume 10.2 FL (9.6-12.0); Monocytes # 0.5 10*3/uL (0.11-0.8); Monocytes % 4.6 % (1.7-12.7); Neutrophils # 6.9 10*3/uL (1.4-7.4); Neutrophils % 60.2 % (38.7-73.9); Platelet Count 313 T/CUMM (130-400); Red Cell Distribution Width 12.4 % (9.3-17.3); White Blood Count 11.4 T/CUMM (4-12)
[2017-05-25 06:50] LABS: Albumin 3.6 G/DL (3.4-5.0); Bilirubin,Total 0.9 MG/DL (0.2-1.0); Calcium 8.9 MG/DL (8.5-10.1); Osmolality,Calculated 279.1 MOS/KG (273-304); Total Protein 6.8 G/DL (6.4-8.3)
[2017-05-25 07:21] VITALS: BP 128/84
--- NOTE | 2017-05-25 09:32 | General Surgery Progress Note ---
Assessment and Plan (1) Abdominal pain Status: Acute Assessment and plan: This patient would like a second opinion regarding her gallbladder. Her tests have all been normal with the exception of possibility of a hyperkinetic gallbladder with ejection fraction of 87%. She did have symptoms with Ensure but unfortunately we do not have synthetic CCK to see if this reproduces her symptoms or not. I would consider her gallbladder as the etiology of her pain a little bit more strongly if we were able to get the synthetic CCK and it did indeed reproduce her symptoms but it is currently on back order at this hospital. She is getting a workup for gastroparesis today with a gastric emptying study. I have reviewed all of her information again and I just do not feel comfortable offering her cholecystectomy with the thought that should her symptoms will improve based on the information available at this time. I have asked [address] Villalobos if you would be willing to see the patient to give his opinion regarding her current situation and see if he thinks anything else would be helpful or if he thinks that an operation is indicated. He has agreed to see her to give his opinion. Subjective Patient reports: Present: no new complaints, still having pain, nausea, vomiting , afebrile Exam - Constitutional Vitals: Period Temp Pulse Resp BP Sys/Cooley Pulse Ox Last 24 Hr 97.1 F-98.1 F 56-90 18-20 113-141/71-95 95-100 General appearance: no acute distress, over weight - Head Head exam: Present: normal inspection, normocephalic - Eye Eye exam: Present: EOMI. Absent: scleral icterus Pupils: Present: CARRI - ENT ENT exam: Present: normal exam Mouth exam: Present: normal external inspection, normal voice - Neck Neck exam: Present: normal inspection, trachea midline - Respiratory Respiratory exam: Present: clear to auscultation bilaterally. Absent: accessory muscle use, chest wall tenderness - Cardiovascular Cardiovascular exam: Present: RRR. Absent: systolic murmur, tachycardia - GI/Abdominal GI/Abdominal exam: Present: normal bowel sounds, tenderness (The patient is focally tender in the right upper quadrant), soft. Absent: guarding, rebound - Extremities Exam Extremities exam: Present: normal inspection, normal capillary refill - Back Exam Back exam: Present: normal inspection - Neurological Exam Neurological exam: Present: alert, oriented X3 Speech: Present: normal - Skin Skin exam: Present: normal color, warm Results - Labs CBC & BMP: 05/25/17 05:05 05/25/17 05:05 - Diagnostic Findings Procedure: CT Abdomen and Pelvis: image reviewed by me, report reviewed by me ( There are multiple fat-containing midline hernias and bilateral inguinal fat- containing hernias.) Quality Measures - VTE Contraindication to Pharmacological VTE Prophylaxis: Clinical assessment deems Pt at low risk, no prophalaxis needed
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
== END 2017-05-25 07:43 | disposition left against medical advice (07) | DRG 251 ==
LOC: N.EDINP 20:17 → N.ED 20:17 → SUATTDRO 05-22 00:52 → N.5E 05-22 01:29
PROVIDERS: ADMIT Internal Medicine; ATTEND Internal Medicine